=== PATIENT | male | born 1955 | race Caucasian/White ===

== ENCOUNTER 2018-08-01 09:19 | Outpatient (CLI) | payer OTHER, SELFPAY ==
--- NOTE | 2018-08-01 06:00 | DI.RAD_ITS ---
SYMPTOM/DIAGNOSIS: LUMBAR RADICULOPATHY C-ARM FLUOROSCOPY LUMBAR SPINE: Fluoroscopy Time: 27.3sec, 8.99mgy Fluoroscopy was provided for guidance for lumbar spine [facility] injections. Hard copy images show a needle projecting from the posterior aspect at the L4 level. Please see procedure note for details.
[2018-08-01 09:32] VITALS: BP 124/73; PULSE 51; RESP 18; TEMP 35.3; O2SAT 100
[2018-08-01] MEDS: Omnipaque 240 MG/ML 50 ML BTL IJ (10:14)
[2018-08-01] MEDS: methylPREDNISolone ACETATE 40 MG/ML VIAL IJ (10:15)
--- NOTE | 2018-08-01 10:16 | PDOC.PAIN ---
Pain Clinic Procedure Note Current Active Problems Problem Status Onset Lumbar radicular syndrome Acute Lumbar Epidural Steroid Injection Procedure Note COMMENTS: I reviewed his recent note from Ms. Shipman and his recent lumbar spine MRI. Pre-procedure pain level to the right leg was 5/10. DX: Lumbosacral radiculitis SEVERINO HILTON has been referred to the [facility] for lumbar epidural steroid injection. The patient was greeted by the nurse who verified patients name and . Patient was then taken to the fluoroscopy suite. The patient was interviewed and the medial record reviewed. There were no medical, pharmacologic, radiographic, or other structural contraindications to attempting fluoroscopically guided lumbar epidural steroid injection. Risks and expected side effects as well as potential benefits of the procedure were reviewed and voiced concerns expressed. The patient consent form was signed and witnessed. Standard patient time-out procedure was performed. The patient was placed in the prone position on the fluoroscopy table and automated blood pressure cuff and pulse oximeter applied. The skin entry point for entering/approaching the epidural space at the right side of the L3-L4 interspace and marked. Following thorough chlorhexadine preparation of the skin and draping and 1% lidocaine infiltration of the skin entry point and subcutaneous tissues, a 18 gauge Touhy needle was placed under fluoroscopic guidance and with loss of resistance technique into the epidural space. Needle tip placement and depth were aided and confirmed by fluoroscopy. There was no paresthesia or return of blood or CSF through the needle. 1 cc's of Omnipaque 240 was injected with clear epidural spread confirmed with fluoroscopy. 80mg depomedrol was injected. There was not any unusual discomfort expressed by SEVERINO HILTON. Patient's vital signs were stable throughout the procedure and were as recorded in nursing records. Follow up plans and appointments were discussed with patient. Post procedure instruction was given as documented in nursing records and having met discharge criteria and was discharged from the [facility]. COMMENTS: This procedure can be completed up to 3 times per 12 months if it is found to be effective. His post-procedure pain level to the right leg was 0/10.
[2018-08-01 10:24] VITALS: BP 144/58; PULSE 57; RESP 14; O2SAT 99
== END 2018-08-01 09:39 ==
PROVIDERS: PCP Legal Medicine; Visit Provider Preventive Medicine Occupational Medicine
DX: M54.16 Radiculopathy, lumbar region (principal)
CPT/HCPCS: 62323; 72100; J1030; Q9967